=== PATIENT | female | born 1965 | race Caucasian/White ===

== ENCOUNTER 2024-10-04 19:03 | Emergency (ER) | payer OTHER ==
[~2024-10-04] VITALS: Ht 160 cm; Wt 59.0 kg
[2024-10-04 20:45] VITALS: BP 108/70; PULSE 79; RESP 18; TEMP 98.4; O2SAT 98
--- NOTE | 2024-10-04 21:01 | ED.PDOC ---
HPI Allergic reaction HPI Comments This patient is a 59-year-old female who came by EMS for evaluation of possible allergic reaction concerns. Patient states she had utilized a product called LAURA turcios at home and had touch some. Patient states she immediately went to wash her hands and face and subsequent to that, states she experienced redness on her skin on her face, hands and lower arms. Patient additionally states her eyes were red per a friend of hers. Patient denies any history of allergic reactions. At time of arrival, patient did not display any noted signs of redness or scleral injection. Vital signs were stable. Patient denies any airway involvement. Chief Complaint: Allergic Reaction Time Seen by MD: 19:13 Reviewed Notes: Nurses Notes Allergies: Coded Allergies: NO KNOWN ALLERGIES (Unverified , 10/04/24) Information Source: Patient Mode of Arrival: EMS Severity: Mild Rash: Mild SOB: None Difficulty swallowing: None Pruritus: Mild Timing: Minutes Duration: Since onset Prehospital treatment: None Location: Arm, Face, Hand Exposed to: Chemical Developed: Pruritus, Rash Modyifying Factors: None Associated Sign and Symptoms: None Past Medical History PAST MEDICAL HISTORY: Denies Surgical History: Denies all surgeries INPUT OUTPUT CLERK History: No Pertinent INPUT OUTPUT CLERK History Family History Family History: Reviewed,noncontributory to illness, No family hx of Cancer, No family hx of DM, No family hx of Heart felisa, No family hx of HTN, No family hx ofKidney felisa, No family hx of Liver felisa, No family hx of Lung felisa, No family hx of Stroke Social History Smoker: Non-Smoker Alcohol: Denies ETOH Use Drugs: Denies Drug Use Lives In: Home Constitutional: denies: chills, diaphoresis, fatigue, fever, malaise, sweats, weakness, others EENTM: denies: blurred vision, double vision, ear bleeding, ear discharge, ear drainage, ear pain, ear ringing, eye pain, eye redness, hearing loss, mouth pain, mouth swelling, nasal discharge, nose bleeding, nose congestion, nose pain, photophobia, tearing, throat pain, throat swelling, voice changes, others Respiratory: denies: cough, hemoptysis, orthopnea, SOB at rest, shortness of breath, SOB with excertion, stridor, wheezing, others Cardiovascular: denies: chest pain, dizzy spells, diaphoresis, Dyspnea on exertion, edema, irregular heart beat, left arm pain, lightheadedness, palpitations, PND, syncope, others Gastrointestinal: denies: abdomen distended, abdominal pain, blood streaked bowels, constipated, diarrhea, dysphagia, difficulty swallowing, hematemesis, melena, nausea, poor appetite, poor fluid intake, rectal bleeding, rectal pain, vomiting, others Genitourinary: denies: abnormal vagina bleeding, burning, dyspareunia, dysuria, flank pain, frequency, hematuria, incontinence, pain, , vagina discharge, urgency, others Neurological: denies: dizziness, fainting, headache, left sided numbness, left sided weakness, numbness, paresthesia, pre-existing deficit, right sided numbness, right sided weakness, seizure, speech problems, tingling, tremors, weakness, others Musculoskeletal: denies: back pain, gout, joint pain, joint swelling, muscle pain, muscle stiffness, neck pain, others Integumetry: reports: rash; denies: bruises, change in color, change in hair/nails, dryness, laceration, lesions, lumps, wounds, others Allergic/Immunocompromised: denies: Difficulty Healing, Frequent Infections, Hives, Itching, others Hematologic/Lymphatic: denies: anemia, blood clots, easy bleeding, easy bruising, swollen glands, others Endocrine: denies: excessive hunger, excessive sweating, excessive thirst, excessive urination, flushing, intolerance to cold, intolerance to heat, unexp lained weight gain, unexplained weight loss, others Psychiatric: denies: anxiety, bipolar disorder, depression, hopeless, panic disorder, schizophrenia, sleepless, suicidal, others Physical Exam General Appearance: Mild Distress (Moderate distress due to continued arm face discomfort.), Normal HEENT: Normal ENT Inspection, Pharynx Normal, TMs Normal Neck: Full Range of Motion, Non-Tender, Normal, Normal Inspection Respiratory: Chest Non-Tender, Lungs Clear, No Accessory Muscle Use, No Respiratory Distress, Normal Breath Sounds Cardiovascular: No Edema, No JVD, No Murmur, No Gallop, Normal Peripheral Pulses, Regular Rate/Rhythm Breast Exam: Deferred Gastrointestinal: No Organomegaly, Non Tender, No Pulsatile Mass, Normal Bowel Sounds, Soft Genitalia: Deferred Pelvic: Deferred Rectal: Deferred Extremities: No calf tenderness, Normal capillary refill, Normal inspection, Normal range of motion, Non-tender, No pedal edema Neurologic: Alert, No Motor Deficits, Normal Affect, Normal Mood, No Sensory Deficits Cerebellar Function: Normal Reflexes: Normal Skin: Dry, Normal Color, Warm, Other (Integument survey was relatively unremarkable. Unable to appreciate any erythema or edema. No sign of allergic reaction.) Lymphatic: No Adenopathy Was a procedure done? Was a procedure done?: No Differential diagnosis (all) Differential Diagnosis: Anaphylaxis, Angioedema, Contact Dermatitis, Urticaria X-Ray, Labs, Meds, VS Vital Signs Date Time Temp Pulse Resp B/P (MAP) Pulse Ox O2 Delivery O2 Flow Rate FiO2 10/04/24 20:45 79 18 98 Room Air 10/04/24 20:45 98.4 79 18 108/70 (83) 98 98.4 10/04/24 19:15 98.9 100 14 112/72 (85) 100 98.9 10/04/24 19:15 16 100 Room Air* 0 21 Current Medications Medications (Trade) Dose Ordered Sig/Hernando Route Start Time Stop Time Status Last Admin Dexamethasone Sodium Phosphate (Decadron Injection) 10 mg ONCE ONCE IM 10/04/24 19:30 10/04/24 19:31 DC 10/04/24 20:40 X-Ray, Labs, Meds, VS Comment Spent time discussing the patient's concerns with the. Advised that I will give her a shot of Decadron before she leaves the facility to aid resolving any remnant concerns. Advised patient to not utilize LAURA tam moving forward. Time of 1ST Reevaluation: 20:59 Reevaluation 1ST: Improved Consultation: PCP Patient Education/Counseling: Diagnosis, Treatment Family Education/Counseling: Diagnosis, Treatment SEPSIS Sepsis Screen Date sepsis recognized/suspect: Oct 04, 2024 Time Sepsis recognized/suspect: 1914 Recent Procedure: No On Antibiotic Therapy: No Respiratory Rate >20: No Heart Rate >90: Yes Temp<36 C (96.8 F) or >38.3 C: No SBP <90 or MAP <65 mmHG: No New Acute Mental Status Change: No Is the patient on CPAP, BIPAP,: No Vital Signs Date Time Temp Pulse Resp B/P (MAP) Pulse Ox O2 Delivery O2 Flow Rate FiO2 10/04/24 20:45 79 18 98 Room Air 10/04/24 20:45 98.4 79 18 108/70 (83) 98 98.4 10/04/24 19:15 98.9 100 14 112/72 (85) 100 98.9 10/04/24 19:15 16 100 Room Air* 0 21 Medications Medications Dose Ordered Sig/Hernando Route Start Time Stop Time Status Last Admin Dose Admin Dexamethasone Sodium Phosphate 10 mg ONCE ONCE IM 10/04/24 19:30 10/04/24 19:31 DC 10/04/24 20:40 Departure 1 Departure Time of Disposition: 21:00 Impression: Primary Impression: Allergic reaction Disposition: 01 HOME / SELF CARE / HOMELESS Condition: Stable Additional Instructions: Advised patient abstain from utilizing offending agent in the future. Discharged With: Self, Friend Critical Care Note Critical Care Time?: No Stability Stability form required: No Heart Score Heart Score: Heart Score Response (Comments) Value History N/A 0 EKG N/A 0 Age N/A 0 Risk Factors N/A 0 Troponin N/A 0 Total 0 ROSENDA WEBB PAC Oct 04, 2024 21:01
== END 2024-10-04 21:19 | disposition home or self-care (01) ==
LOC: ER 19:03 → EDBD 19:03 → ER 21:19
DX: T78.40XA Allergy, unspecified, initial encounter (principal); X58.XXXA Exposure to other specified factors, initial encounter
CPT/HCPCS: 96372; 99283; J1100